=== PATIENT | female | born 2000 | race Caucasian/White ===

== ENCOUNTER 2019-08-12 17:55 | Emergency (ER) | payer OTHER ==
[2019-08-12 18:36] VITALS: TEMP 98.2
[2019-08-12] MEDS ORDERED: LORazepam 1 MG TAB PO STA (19:15)
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
--- NOTE | 2019-08-12 19:48 | XR ---
EXAMINATION TYPE: XR chest 2V DATE OF EXAM: 08/12/2019 COMPARISON: NONE HISTORY: Chest pain TECHNIQUE: FINDINGS: Heart and mediastinum are normal. Lungs are clear. Diaphragm is normal. Bony thorax appears intact. IMPRESSION: Normal chest.
[2019-08-12 19:55] VITALS: BP 126/66; PULSE 77; RESP 18
== END 2019-08-12 20:42 | disposition home or self-care (01) ==
LOC: EC 17:55
DX: F41.9 Anxiety disorder, unspecified (principal); R07.89 Other chest pain; Z88.8 Allergy status to other drugs, medicaments and biological substances
CPT/HCPCS: 71046; 93005; 99285